=== PATIENT | female | born 1985 | race Caucasian/White ===

== ENCOUNTER 2017-04-24 20:52 | Emergency (ER) | payer SELFPAY ==
[~2017-04-24] VITALS: Ht 162.6 cm; Wt 54.4 kg
[2017-04-24 20:58] VITALS: BP 142/95
--- NOTE | 2017-04-24 21:27 | PHYS DOC ---
Past Medical History Past Medical History: Anxiety, Depression, Other Additional Past Medical Histor: PTSD Past Surgical History: Alcohol Use: None Drug Use: None Adult General Chief Complaint Chief Complaint: MEDICATION REFILL [facility] HPI Patient is a 31 year old female presents to the emergency department stating that she has been out of her Prozac, Valium for the last 3 weeks. She states her primary care physician is in [place]. She is here with her boyfriend who states that she has recently just moved here with him for his job. He states he did not realize that she was on the medications as much as. Patient states that she was attempting try to get away from the dog mary that is a friendly dog and fell and hit her head. She does have a bruise above her right thigh. She denies any loss of consciousness. Review of Systems Review of Systems Constitutional: Denies fever or chills [] Eyes: Denies change in visual acuity, redness, or eye pain [] HENT: Denies nasal congestion or sore throat [] Respiratory: Denies cough or shortness of breath [] Cardiovascular: No additional information not addressed in HPI [] GI: Denies abdominal pain, nausea, vomiting, bloody stools or diarrhea [] : Denies dysuria or hematuria [] Musculoskeletal: Denies back pain or joint pain [] Integument: Denies rash or skin lesions [] Neurologic: Denies headache, focal weakness or sensory changes. Complaint of anxiety issues. Endocrine: Denies polyuria or polydipsia [] Allergies Allergies Allergies Coded Allergies Type Severity Reaction Last Updated Verified Penicillins Allergy Severe Anaphylaxis 04/24/17 Yes Physical Exam Physical Exam Constitutional: Well developed, well nourished, no acute distress, non-toxic appearance. [] HENT: Normocephalic, atraumatic, bilateral external ears normal, oropharynx moist, no oral exudates, nose normal. [] Eyes: PERRLA, EOMI, conjunctiva normal, no discharge. [] Neck: Normal range of motion, no tenderness, supple, no stridor. [] Cardiovascular:Heart rate regular rhythm, no murmur [] Lungs & Thorax: Bilateral breath sounds clear to auscultation [] Skin: Warm, dry, no erythema, no rash. [] Back: No tenderness Extremities: No tenderness, no cyanosis, no clubbing, ROM intact, no edema. [] Neurologic: Alert and oriented X 3, normal motor function, normal sensory function, no focal deficits noted. [] Psychologic: Affect normal, judgement normal, mood normal. [] Current Patient Data Vital Signs Vital Signs Date Time Temp Pulse Resp B/P (MAP) Pulse Ox O2 Delivery O2 Flow Rate FiO2 04/24/17 20:58 98.6 111 16 97 Room Air 98.6 EKG EKG [] Radiology/Procedures Radiology/Procedures [] Course & Med Decision Making Course & Med Decision Making Pertinent Labs and Imaging studies reviewed. (See chart for details) Spoke with patient and boyfriend at the bedside who was informed that she has been off medications for the last 3 weeks in which this means the medication is no longer in her system. Explained that they needed to follow up with her primary care physician for further refills of her medicines. This was a medication that needs to be monitored as well. Patient states that they will try to contact her primary care physician tomorrow in regards to getting the prescriptions filled. Explained to patient that we will provide her with Valium 5 mg here in the emergency department however we will not be able to fulfill her medication refill for Prozac 20 mg of Valium 10 mg here in the emergency department. Explained to patient that this is a medication that needs to be taking care of with her primary care physician and most emergency departments will not refill her medications for these in the future. Patient understood and states the 5 mg of Valium should help him be able to take care of her through the night. Patient will be discharged home in stable condition signs and symptoms to return back to emergency department has been provided. All questions have been answered at patient's bedside. [] Dragon Disclaimer Dragon Disclaimer This electronic medical record was generated, in whole or in part, using a voice recognition dictation system. Departure Departure Impression: Primary Impression: Medication refill Disposition: 01 HOME, SELF-CARE Condition: STABLE Referrals: NO PCP (PCP) Patient Instructions: Medication Refill, Emergency Department Additional Instructions: You will need to contact her primary care physician or your mental health physician tomorrow in regards to further refills of your Prozac and Valium. Emergency departments are not designed for medication refills for chronic issues. Return to the emergency department for signs and symptoms of become worse. AC GOLDBERG DIRECTOR OF [employer]MAIL MARKETING Apr 24, 2017 21:27
[2017-04-24] MEDS ORDERED: diazePAM 5 MG TABLET PO ONE (21:30)
== END 2017-04-24 21:31 | disposition home or self-care (01) ==
LOC: ER 20:52
DX: Z76.0 Encounter for issue of repeat prescription (principal); S70.11XA Contusion of right thigh, initial encounter; F43.10 Post-traumatic stress disorder, unspecified; Z88.0 Allergy status to penicillin; W18.09XA Striking against other object with subsequent fall, initial encounter; Y93.9 Activity, unspecified; Y99.8 Other external cause status; Y92.89 Other specified places as the place of occurrence of the external cause
CPT/HCPCS: 99283